=== PATIENT | male | born 1960 | race Caucasian/White ===

== ENCOUNTER → 2023-05-21 | Outpatient (CLI) | payer MEDICAID ==
[2023-05-21 15:03] LABS: INR 0.9 (<1.2); Partial Thromboplastin Time 26.4 sec (22.0-30.0); Prothrombin Time 10.3 sec (10.0-12.5)
[2023-05-21 19:58] LABS: HCT 49.5 % (39.6-50.0); HGB 16.8 g/dL (13.0-17.0); MCH 30.5 pg (27.0-32.0); MCHC 33.9 g/dL (32.0-37.0); Mean Platelet Volume 10.7 FL (9.5-12.2); NRBC Per 100 WBC 0 X 10*3/uL (0.00-0.01); Platelet Count 316 X 10*3/uL (140-440); RDW 12.8 % (11.5-14.5); WBC 8.96 X 10*3/uL (4.50-10.00)
[2023-05-22 01:57] LABS: Appearance,Urine Turbid (Clear); Bilirubin,Urine Negative (Negative); Blood,Urine Negative (Negative); Color,Urine Yellow (Yellow); Ketones,Urine Negative (Negative); Nitrite,Urine Negative (Negative); Specific Gravity,Urine 1.022 (1.001-1.030); Urobilinogen,Urine 0.2 E.U./DL
[2023-05-22 02:07] LABS: Bacteria,Urine None Seen (None Seen)
[2023-05-22 02:34] LABS: ALT 62 U/L (10-49); AST 46 U/L (14-35); Albumin 4.8 g/dL (3.8-4.9); Albumin/Globulin Ratio 1.66 Ratio (1.60-3.17); Alkaline Phosphatase 96 U/L (41-126); BUN/Creat Ratio 13.38 Ratio (12.00-20.00); Blood Urea Nitrogen 10.7 mg/dL (9.0-27.0); Calcium 10.6 mg/dL (8.7-10.3); Chloride 97 mmol/L (96-109); Globulin 2.9 g/dL (1.6-3.3); Glucose 155 mg/dL (70-110); Potassium 5.3 mmol/L (3.5-5.5); Sodium 138 mmol/L (135-145); Total Bilirubin 0.4 mg/dL (0.3-1.2); Total Protein 7.7 g/dL (6.2-8.2)
== END | disposition home or self-care (01) ==
LOC: LABPAT 12:35
PROVIDERS: ATTEND Orthopaedic Surgery
DX: Z01.812 Encounter for preprocedural laboratory examination (principal); I44.4 Left anterior fascicular block; M16.11 Unilateral primary osteoarthritis, right hip; E11.9 Type 2 diabetes mellitus without complications; R94.31 Abnormal electrocardiogram [ECG] [EKG]
CPT/HCPCS: 80053; 81001; 83036; 85027; 85610; 85730; 86850; 86900; 86901; 87070; 93005

== ENCOUNTER → 2023-07-01 | Outpatient (CLI) | payer MEDICAID ==
--- NOTE | 2023-07-01 12:52 | US ---
EXAMINATION TYPE: US liver DATE OF EXAM: 07/01/2023 COMPARISON: NONE CLINICAL INDICATION: Male, 62 years old with history of R74.8 ELEVATED LIVER ENZYMES; Elevated liver enzymes. TECHNIQUE: Multiple sonographic images of the right upper quadrant are obtained. FINDINGS: EXAM MEASUREMENTS: Liver Length: 19.0 cm Gallbladder Wall: 0.25 cm CBD: 0.48 cm Right Kidney: 13.5 x 6.3 x 5.1 cm MEDICAL RECEPTIONIST BILLER NOTES: Exam is limited due to gas and patient body habitus. Pancreas: Not well seen due to body habitus and bowel gas. Liver: Appears enlarged, heterogeneous, with increased attenuation and echogenicity. Limited. Gallbladder: Fold seen. Evidence for sonographic Ktichen's sign: No CBD: Portions seen appear wnl Right Kidney: No hydronephrosis. IVC was not well seen, limited. IMPRESSION: 1. Hepatomegaly at 19.0 cm with severe hepatic steatosis. Appropriate clinical management advised. 2. No gallstones or biliary ductal dilatation.
== END | disposition home or self-care (01) ==
LOC: RADUSWWP 06:48
PROVIDERS: ATTEND Family Medicine
DX: K76.0 Fatty (change of) liver, not elsewhere classified (principal); R16.0 Hepatomegaly, not elsewhere classified; R74.8 Abnormal levels of other serum enzymes
CPT/HCPCS: 76705

== ENCOUNTER → 2023-08-25 | Outpatient (CLI) | payer MEDICAID ==
[2023-08-25 09:30] LABS: INR 0.9 (<1.2); Partial Thromboplastin Time 26.2 sec (22.0-30.0); Prothrombin Time 10.4 sec (10.0-12.5)
[2023-08-25 11:01] LABS: HCT 46.2 % (39.6-50.0); HGB 15.6 g/dL (13.0-17.0); MCHC 33.8 g/dL (32.0-37.0); MCV 91.8 FL (80.0-97.0); Mean Platelet Volume 11.3 FL (9.5-12.2); NRBC Per 100 WBC 0 X 10*3/uL (0.00-0.01); Platelet Count 294 X 10*3/uL (140-440); RBC 5.03 X 10*6/uL (4.40-5.60); RDW 13.1 % (11.5-14.5); WBC 8.62 X 10*3/uL (4.50-10.00)
[2023-08-25 11:10] LABS: ALT 41 U/L (10-49); AST 26 U/L (14-35); Albumin 4.5 g/dL (3.8-4.9); Alkaline Phosphatase 87 U/L (41-126); BUN/Creat Ratio 16.78 Ratio (12.00-20.00); Blood Urea Nitrogen 15.1 mg/dL (9.0-27.0); Calcium 9.5 mg/dL (8.7-10.3); Carbon Dioxide 23.3 mmol/L (21.6-31.8); Chloride 100 mmol/L (96-109); Globulin 2.5 g/dL (1.6-3.3); Glucose 161 mg/dL (70-110); Potassium 4.6 mmol/L (3.5-5.5); Sodium 136 mmol/L (135-145); Total Bilirubin 0.3 mg/dL (0.3-1.2)
== END | disposition home or self-care (01) ==
LOC: LABPAT 08:20
PROVIDERS: ATTEND Orthopaedic Surgery
DX: Z01.812 Encounter for preprocedural laboratory examination (principal); Z22.322 Carrier or suspected carrier of Methicillin resistant Staphylococcus aureus; M16.11 Unilateral primary osteoarthritis, right hip; E11.9 Type 2 diabetes mellitus without complications
CPT/HCPCS: 80053; 83036; 85027; 85610; 85730; 86618; 86850; 86900; 86901; 87070

== ENCOUNTER 2023-09-03 10:12 | Day surgery (SDC) | payer MEDICAID ==
[~2023-09-03 10:12] MED LIST: DEXAMETHASONE SOD PHOSPHATE 10 MG/ML 1 ML VIAL IV PRN; HYDROmorphone 0.5 MG/0.5 ML SYRINGE IVP PRN; LIDOCAINE 1% (10MG/ML) FOR IV START INTRADERMA PRN; ONDANSETRON 4 MG/2 ML VIAL IVP PRN; TRANEXAMIC 1,000 MG/100ML-NACL 1,000 MG in SALINE 1 100ML.BAG IV PRN; TRANEXAMIC 1,000 MG/100ML-NACL 1,000 MG in SALINE 1 100ML.BAG IVPB PRN
[2023-09-03] MEDS: LACTATED RINGERS 1,000 ML IV SCH (11:08)
[2023-09-03 11:47] LABS: Glucose,Whole Blood 110 mg/dL (70-110)
[2023-09-03] MEDS: ACETAMINOPHEN TAB 500 MG TAB PO PRN (11:55)
[2023-09-03] MEDS: oxyCODONE ER 10 MG TAB.ER.12H PO PRN (11:55)
[2023-09-03] MEDS: DOCUSATE 100 MG CAP PO PRN (11:55)
[2023-09-03] MEDS: MIDAZOLAM 2 MG/2 ML VIAL IV PRN (12:01)
[2023-09-03] MEDS: KETOROLAC 15 MG/ML 1 ML VIAL IVP PRN (12:11)
[2023-09-03] MEDS: ONDANSETRON 4 MG/2 ML VIAL IVP ONE (12:11)
[2023-09-03] MEDS: DEXAMETHASONE SOD PHOSPHATE 4 MG/ML 1 ML VIAL IV ONE (12:11)
[2023-09-03] MEDS: FAMOTIDINE 20 MG/2 ML VIAL IVP PRN (12:11)
[2023-09-03] MEDS ORDERED: TRANEXAMIC 1,000 MG/100ML-NACL PREMIX BAG ONE (12:24)
[2023-09-03] MEDS ORDERED: fentaNYL (PF) 50 MCG/ML 2 ML AMP ONE (12:24)
[2023-09-03] MEDS ORDERED: NEOSTIGMINE 1 MG/ML 10 ML VIAL ONE (12:24)
[2023-09-03] MEDS ORDERED: SUCCINYLCHOLINE CHLORIDE 200 MG/10 ML VIAL IV ONE (12:24)
[2023-09-03] MEDS ORDERED: DEXAMETHASONE SOD PHOSPHATE 10 MG/ML 1 ML VIAL ONE (12:24)
[2023-09-03] MEDS ORDERED: GLYCOPYRROLATE 0.2 MG/ML 2 ML VIAL ONE (12:24)
[2023-09-03] MEDS ORDERED: PROPOFOL 10 MG/ML 20 ML VIAL IV ONE (12:24)
[2023-09-03] MEDS ORDERED: ROCURONIUM 10 MG/ML (5 ML VIAL) IV ONE (12:24)
[2023-09-03] MEDS ORDERED: MIDAZOLAM 2 MG/2 ML VIAL ONE (12:24)
[2023-09-03] MEDS ORDERED: ROPIVACAINE 5 MG/ML 30 ML VIAL ONE (12:24)
[2023-09-03] MEDS ORDERED: PHENYLEPHRINE 10 MG/ML VIAL ONE (12:24)
--- NOTE | 2023-09-03 12:29 | P.ANPRN ---
Procedure Note - Anesthesia - Nerve Block Performed Right Moy Single Time Out Performed: Yes Date of Procedure: 09/03/23 Procedure Start Time: 12:00 Procedure Stop Time: 12:08 Location of Patient: PreOp Indication: Acute Post-Operative Pain, Analgesia, Requested by Surgeon Sedation Type: Sedate with meaningful contact maintained Preparation: Sterile Prep Position: Supine Catheter: None Needle Types: Pajunk Needle Gauge: 21 Ultrasound used to visualize needle placement: Yes Ultrasound used to observe medication spread: Yes Injectate: 0.5% Ropivacaine (see comment for volume) (Ropiv 30ml + decadron 4mg) Blood Aspirated: No Pain Paresthesia on Injection Noted: No Resistance on Injection: Normal Image Stored and Saved: Yes Events: Uneventful and Well Tolerated
[2023-09-03] MEDS: ceFAZolin 3 GM in SODIUM CHLORIDE 0.9% 100 ML IVPB PRN (12:30)
[2023-09-03] MEDS: ROPIVACAINE/EPI/CLONIDINE/KET 50 ML SYRINGE MISCELLANE PRN (13:13)
[2023-09-03] MEDS: VANCOMYCIN 1,000 MG VIAL MISCELLANE ONE (14:19)
--- NOTE | 2023-09-03 14:36 | P.OP ---
Date of Procedure: 09/03/23 Preoperative Diagnosis: 1. Severe right hip osteoarthritis 2. BMI 44 3. Type 2 diabetes Postoperative Diagnosis: Same Procedure(s) Performed: Right direct anterior total hip arthroplasty Implants: 1. [place] Trident II Acetabular Cup, Size #56 2. [place] Insignia Size #6 Femoral Stem, High Offset 3. Biolox delta femoral head, 36 mm, +0 neck Anesthesia: JACQUIA, regional Surgeon: El Byers Sinker Winder #1: Gianna Rodriguez Estimated Blood Loss (ml): 200 IV fluids (ml): 1,200 Pathology: none sent Condition: stable Disposition: PACU Indications for Procedure: The patient presented to my office with severe and incapacitating right hip pain secondary to advanced arthritis. He had failed nonsurgical treatment and requested proceeding with a total hip replacement. As part of my preoperative work up his hemoglobin A1c was about 8 which I recommended reducing prior to elective hip replacement. He was able to do this. He understands that he is at an elevated risk of having a complication given his weight but did well after both of his knee replacements. He requested proceeding with a total hip replacement. I had a long discussion with the patient in the office on the potential risks and complications of an elective total hip replacement through a direct anterior approach. Risks discussed include, but are certainly not limited to, risks from anesthesia, superficial infection requiring local wound care or antibiotics, deep maddi-prosthetic joint infection and the treatment required to eradicate infection, intraoperative fracture, postoperative periprosthetic fracture, damage to local blood vessels or nerves particularly the lateral femoral cutaneous nerve, delayed wound healing requiring local wound care or possibly surgical debridement, hip dislocation, leg length discrepancy, soft tissue irritation around the total hip implant such as iliopsoas tendinitis or trochanteric bursitis, wear and osteolysis from the implants, squeaking or audible noises, groin pain, thigh pain, heterotopic ossification, stiffness, aseptic loosening of the implants, dissatisfaction with surgical outcome, need for revision surgery, DVT, PE, swelling of the operative extremity, acute cor onary event, stroke, failure to thrive, and possibly loss of life or limb. The patient understands that while these are the most common complications after an elective hip replacement there are certainly other less common complications possible. They were given ample time to ask questions regarding the potential complications of a hip replacement. Following our discussion the patient provided their verbal and written consent to go forward with an elective total hip replacement. Operative Findings: Severe right hip osteoarthritis and large clear hip effusion Description of Procedure: The patient was identified in the preoperative holding area and the correct hip was marked with my initials. I reviewed the procedure and consent with the patient. All of their questions were answered. The patient was then brought back into the operating room by anesthesia. While on the [facility] anesthesia was administered by the anesthesia team. Preoperative antibiotics and tranexamic acid were also given. After the patient was under anesthesia I examined their ankles to determine their preoperative leg length discrepancy. The skin over the anterior aspect of the hip was shaved to remove hair over the site of planned incision. Both feet and ankles were padded with webril and boots for the [place] were applied. The patient was then carefully transferred onto the [place] table. A perineal post was immediately placed. The arms were placed on arm holders and were well-padded. Both boots were secured to the spars on the [place] table. The patient was positioned so that the pelvis was centered over the post. Nonsterile drapes were applied. A timeout was performed identifying the correct patient, operative extremity, and procedure. At this point fluoroscopy was brought in to take preoperative images of the pelvis and operative hip. Using the standing AP pelvis from the office as a template, a comparable image was obtained with fluoroscopy. A metallic bar was used to create a bi-ischial line for use as a reference to leg length adjustments during the procedure. Global offset was also measured on both the operative and nonoperative leg. Fluoroscopy was then brought out and a pre-scrub using a chlorhexidine scrub brush was performed. The operative limb was then prepped and draped in the standard sterile fashion. An anterior longitudinal incision was made lateral and distal to the ASIS. The skin and subcutaneous tissues were incised sharply. The underlying tensor fascia was identified and incised in its midportion. The fascia was dissected free from the underlying muscle and the muscle belly was retracted. A blunt tipped cobra retractor was placed over the superior neck under the muscle fibers of the gluteus minimus. The deep enveloping fascia of the tensor was incised. The anterior leash of vessels were then identified and cauterized. The fascia between the rectus and the capsule was then incised and the pre-capsular fat was excised. A second Cobra was placed inferior to the neck. The interval between the rectus and iliocapsularis and the hip capsule was developed and a retractor was placed carefully over the anterior rim of the acetabulum. A T-shaped anterior capsulotomy was performed. The superior capsular leaflet was left in place in the inferior capsular flap was excised. The Cobra retractors were placed intracapsularly. We then made a femoral neck osteotomy according to preoperative and intraoperative templating and confirmed the level of the osteotomy using fluoroscopic imaging. The femoral head was removed, passed off to the back table, and sized. The superior capsular flap was excised. Retractors were placed circumferentially exposing the acetabulum. We then circumferentially debrided the acetabulum free of labrum and osteophytes. The pulvinar was removed to fully visualize the cotyloid fossa. We then sequentially reamed to achieve peripheral fit and excellent bleeding subchondral bone. The socket was thoroughly irrigated. The acetabular component was impacted into the appropriate position using fluoroscopy to guide version, inclination, and depth of insertion taking care to have a comparable image of the AP pelvis to the standing image taken in the office. An excellent press-fit was achieved and final position was confirmed using fluoroscopy. The press fit was augmented with bony cancellus dome screws. The liner was then impacted into the socket. Attention was then turned to the femur. The remnant dorsal lateral capsule was excised. The short external rotators were visible and protected. A bone hook was used to confirm appropriate translation of the trochanter away from the acetabulum. The leg was then extended and adducted and the bone hook was used to elevate the femur for broaching. A box osteotome and blunt tipped canal sound was then utilized to gain access to the femoral canal. We then sequentially broached the femur in appropriate anteversion until excellent torsional stability was achieved. The neck cut was brought flush to the trial broach with a calcar planar. A trial neck and head were then placed onto the broach and the hip was atraumatically reduced under direct visualization. External rotation to 90 was performed to assess stability. Fluoroscopy was brought in. An AP and lateral fluoroscopic image of the proximal femur was obtained to assess position and fill of the trial broach. An AP of the pelvis was then obtained and matched to the preoperative image taken. A bi-ischial bar was then placed and measurements were taken to assess changes in length and offset. The hip was then carefully dislocated, the proximal femur was exposed, and the trial implants were removed. The wound and proximal femur was thoroughly irrigated using sterile saline and pulsatile lavage. The final femoral implant was dispensed and gently tapped into place generating an excellent press-fit. The trunnion was cleansed and the final head was tapped into place to engage the [place] taper. The acetabulum was irrigated and visualized to be free of debris. The hip was carefully reduced. Stability was checked clinically with external rotation to 90 and there was no evidence of instability. Final fluoroscopic images were taken. The wound was then thoroughly irrigated and soaked with a dilute Betadine rinse for 3 minutes. 3 L of sterile saline was irrigated through the wound using pulsatile lavage. Local anesthetic cocktail was injected into the soft tissues around the surgical field. The wound was then closed in layers. A sterile dressing was placed over the surgical incision. The drapes were taken down and the patient was carefully transferred off of the [place] table. Following removal of the boots the leg lengths felt acceptable. The patient was then taken to recovery room having tolerated the procedure well. Gianna PETERSON was required as a skilled speech language pathology assistant due to the complexity of surgery for patient positioning, draping, exposure, retraction, closure of wound, and application of dressing. PLAN: The patient can weight-bear as tolerated on the operative extremity. DVT prophylaxis with aspirin 81 mg twice a day based on preoperative risk stratification. Physical therapy for gait training. Leave surgical dressing in place. Internal medicine for perioperative medical management.
[2023-09-03] MEDS ORDERED: HYDROmorphone 0.5 MG/0.5 ML SYRINGE IVP PRN ×2 (14:53)
[2023-09-03] MEDS ORDERED: NALOXONE 0.4 MG/ML 1 ML VIAL IV PRN (14:53)
[2023-09-03] MEDS ORDERED: ONDANSETRON 4 MG/2 ML VIAL IVP PRN (14:53)
[2023-09-03] MEDS ORDERED: MAGNESIUM HYDROXIDE 2,400 MG/30 ML CUP PO PRN (14:53)
[2023-09-03] MEDS ORDERED: HYDROcodone/APAP 7.5-325MG 1 EACH TAB PO PRN (14:56)
[2023-09-03 15:03] LABS: Glucose,Whole Blood 159 mg/dL (70-110)
[2023-09-03] MEDS: HYDROmorphone 0.5 MG/0.5 ML SYRINGE IVP ONE ×2 (15:04→15:39)
[2023-09-03] MEDS: LACTATED RINGERS 1,000 ML IV ONE (15:41)
--- NOTE | 2023-09-03 15:54 | FL ---
EXAMINATION TYPE: FL guidance operating room, XR Hip Limited RT DATE OF EXAM: 09/03/2023 Comparison: None Clinical History: 63-year-old male RT ANTERIOR HIP Findings: RT ANTERIOR HIP REPLACEMENT. 40 SEC FL TIME & 4.[address] PERES. 8 images submitted. Impression: Intraoperative fluoroscopy as above.
[2023-09-03] MEDS: SODIUM CHLORIDE 0.9% 1,000 ML IV SCH (16:22)
[2023-09-03 16:53] LABS: Glucose,Whole Blood 156 mg/dL (70-110)
[2023-09-03] MEDS: HYDROmorphone 1 MG/ML 1 ML SYRINGE IVP PRN (17:44)
[2023-09-03 20:36] LABS: Glucose,Whole Blood 206 mg/dL (70-110)
[2023-09-03] MEDS: SENNOSIDES-DOCUSATE SODIUM 1 EACH TAB PO SCH (21:03)
[2023-09-03] MEDS: ASPIRIN 81 MG PO SCH (21:03)
[2023-09-03] MEDS: lisinopriL 20 MG TAB PO SCH (21:03)
[2023-09-03] MEDS: ceFAZolin 3 GM in SODIUM CHLORIDE 0.9% 100 ML IVPB SCH (21:04)
[2023-09-03] MEDS: HYDROcodone/APAP 7.5-325MG 1 EACH TAB PO PRN (21:04)
[2023-09-03 21:18] VITALS: RESP 18
[2023-09-04 05:49] LABS: Glucose,Whole Blood 168 mg/dL (70-110)
[2023-09-04] MEDS ORDERED: HYDROcodone/APAP 10-325MG 1 EACH TAB PO PRN (07:38)
--- NOTE | 2023-09-04 07:44 | P.PN ---
Subjective Progress Note Date: 09/04/23 Is having pain in his right hip is otherwise doing well. He has not been out of bed yet. Objective - Vital Signs Vital signs: Vital Signs Temp 98.2 F 09/04/23 02:10 Pulse 76 09/04/23 02:10 Resp 18 09/04/23 02:10 BP 100/64 09/04/23 02:10 Pulse Ox 93 L 09/04/23 02:10 FiO2 Intake & Output 09/03/23 09/04/23 09/04/23 18:59 06:59 18:59 Intake Total 1150 500 Output Total 200 625 Balance 950 -125 Weight 156.9 kg Intake: IV 1150 Oral 500 Output: Urine 625 Estimated Blood Loss 200 - Exam Resting comfortably in bed. Alert and able to answer questions. Dressing over the anterior aspect of the right hip is intact with no drainage or strike through. Mild swelling. Femoral nerve function is intact. Able to actively plantar flex and dorsiflex his ankle and his toes. - Labs Labs: Abnormal Lab Results - Last 24 Hours (Table) 09/03/23 09/03/23 09/03/23 Range/Units 15:02 16:52 20:32 POC Glucose (mg/dL) 159 H 156 H 206 H (70-110) mg/dL 09/04/23 Range/Units 05:38 POC Glucose (mg/dL) 168 H (70-110) mg/dL Assessment and Plan Assessment: Postoperative day #1 status post right direct anterior total hip arthroplasty BMI 44 Type 2 diabetes with preoperative hemoglobin A1c 7.0 Plan: 1. Weight bear as tolerated on the operative extremity, up with assistance and a walker 2. DVT prophylaxis with aspirin 81 mg BID 3. 2 doses of post operative antibiotics 4. Leave surgical dressing in place 5. Internal medicine for maddi-operative medical management 6. Physical therapy for gait training and mobilization 7. Dispo: And like to see the patient does with physical therapy and is getting control. If he passes therapy and is comfortable he can discharge home later today, but if he needs another night we'll plan on keeping him until tomorrow.
[2023-09-04 07:53] VITALS: BP 111/72; PULSE 72; TEMP 98.1
[2023-09-04] MEDS: HYDROcodone/APAP 10-325MG 1 EACH TAB PO PRN (09:12)
[2023-09-04 10:46] LABS: Basophils # (A) 0.03 X 10*3/uL (0.00-0.10); Basophils % (A) 0.2 %; Eosinophils # (A) 0.01 X 10*3/uL (0.04-0.35); Eosinophils % (A) 0.1 %; HCT 39.3 % (39.6-50.0); HGB 13.3 g/dL (13.0-17.0); Lymphocytes # (A) 2.07 X 10*3/uL (0.90-5.00); Lymphocytes % (A) 10.8 %; MCH 31.5 pg (27.0-32.0); MCHC 33.8 g/dL (32.0-37.0); MCV 93.1 FL (80.0-97.0); Mean Platelet Volume 10.5 FL (9.5-12.2); Monocytes # (A) 1.46 X 10*3/uL (0.20-1.00); Monocytes % (A) 7.6 %; NRBC Per 100 WBC 0 X 10*3/uL (0.00-0.01); Neutrophils # (A) 15.52 X 10*3/uL (1.80-7.70); Neutrophils % (A) 80.5 %; Platelet Count 294 X 10*3/uL (140-440); RBC 4.22 X 10*6/uL (4.40-5.60); RDW 13.3 % (11.5-14.5); WBC 19.24 X 10*3/uL (4.50-10.00)
[2023-09-04 11:32] LABS: Glucose,Whole Blood 152 mg/dL (70-110)
--- NOTE | 2023-09-04 11:56 | P.DS ---
Providers Date of admission: Friday09/03/2023 Attending physician: El Byers Consults: 09/03/23 14:53 Consult Physician Routine Consulting Provider: Jhony Dougherty Consult Reason/Comments: medical management Do you want consulting provider notified?: Yes Primary care physician: Jhony Dougherty Hospital Course: Patient is very pleasant 63-year-old male was admitted under my care and 1 underwent a total hip replacement yesterday. He is admitted to the orthopedic floor. He did well. He was transitioned from IV to oral pain medications. He received 2 doses postoperative antibiotics. He worked with physical therapy and did well. He is cleared for discharge. Plan - Discharge Summary Discharge Rx Participant: No New Discharge Prescriptions: New Omeprazole [PriLOSEC] 20 mg PO DAILY #30 cap Doxycycline [Vibramycin] 100 mg PO BID 14 Days #28 capsule oxyCODONE HCL/ACETAMINOPHEN [Percocet 7.5-325 mg] 1 tab PO Q4HR PRN 7 Days #32 tab PRN Reason: Pain Aspirin [Adult Low Dose Aspirin EC] 81 mg PO BID 30 Days #60 tab Sennosides [Senokot] 2 tab PO DAILY PRN #60 tablet PRN Reason: Constipation Diclofenac Sodium [Voltaren] 75 mg PO BID #60 tab No Action Rosuvastatin Calcium [Crestor] 40 mg PO HS HYDROcodone/APAP 10-325MG [[place] 10-325] 1 tab PO Q8H PRN PRN Reason: Pain lisinopriL [Zestril] 40 mg PO HS Semaglutide [Ozempic] 0.5 mg SQ SA Mupirocin 2% Oint [Bactroban 2% Oint] 1 applic NASAL BID Discharge Medication List HYDROcodone/APAP 10-325MG [[place] 10-325] 1 tab PO Q8H PRN 09/01/23 [History] Mupirocin 2% Oint [Bactroban 2% Oint] 1 applic NASAL BID 09/01/23 [History] Rosuvastatin Calcium [Crestor] 40 mg PO HS 09/01/23 [History] Semaglutide [Ozempic] 0.5 mg SQ SA 09/01/23 [History] lisinopriL [Zestril] 40 mg PO HS 09/01/23 [History] Aspirin [Adult Low Dose Aspirin EC] 81 mg PO BID 30 Days #60 tab 09/03/23 [Rx] Diclofenac Sodium [Voltaren] 75 mg PO BID #60 tab 09/03/23 [Rx] Doxycycline [Vibramycin] 100 mg PO BID 14 Days #28 capsule 09/03/23 [Rx] Omeprazole [PriLOSEC] 20 mg PO DAILY #30 cap 09/03/23 [Rx] Sennosides [Senokot] 2 tab PO DAILY PRN #60 tablet 09/03/23 [Rx] oxyCODONE HCL/ACETAMINOPHEN [Percocet 7.5-325 mg] 1 tab PO Q4HR PRN 7 Days #32 tab 09/04/23 [Rx] Follow up Appointment(s)/Referral(s): El Byers MD [Medical Doctor] - 2 Weeks Activity/Diet/Wound Care/Special Instructions: 1. Weight-bear as tolerated on your operative extremity unless instructed otherwise. Use a walker or other assistive device to ambulate. 2. Leave surgical dressing in place. If your dressing becomes saturated with blood, there is drainage, or the dressing becomes loose please contact the office. 3. It is okay to shower with your surgical dressing, but do not submerge in water (no hot tubs, bath's, swimming etc.) 4. Make sure to take her blood clot prevention medication as prescribed (aspirin, Eliquis, Xarelto, and Plavix are commonly prescribed medications for blood clot prevention) 5. While taking [place] or Percocet for pain make sure you're taking a stool softener (Colace) and drink lots of water. 6. Keep all follow-up appointments as scheduled. You will usually be seen in 1-2 weeks following surgery. 7. Please contact the office with any questions or concerns [phone] 8. Schedule an appointment for outpatient physical therapy once home from the hospital. Discharge Disposition: HOME WITH HOME HEALTH SERVICES
--- NOTE | 2023-09-06 02:54 | PN ---
PROGRESS NOTE DATE OF SERVICE: 09/04/2023 CHIEF COMPLAINT: Status post right YEHUDA. HISTORY OF PRESENT ILLNESS: This gentleman is doing well. He has had no fever, chills, chest pain, shortness of breath, etc. He is doing very well up and about and he is eating and voiding. He expects to go home today. PHYSICAL EXAMINATION: GENERAL: Color is good. VITAL SIGNS: Normal. CHEST: Clear. CARDIAC: Normal. ABDOMEN: Protuberant, soft and nontender. IMPRESSION: 1. Status post right total abdominal hysterectomy. 2. Obesity. 3. Diabetes. PLAN: Probably home today. MMODL / IJN: [id number] /
[2023-09-06] MEDS ORDERED: NON FORMULARY DRUG (Semaglutide [Ozempic] 0.25 MG/0.368 ML Pen.Injctr) SQ SCH (09:00)
--- NOTE | 2023-09-08 07:40 | CONS ---
CONSULTATION CHIEF COMPLAINT: Right hip pain. HISTORY OF PRESENT ILLNESS: This gentleman is coming in for an elective right hip replacement. He has been in good health. He is overweight. REVIEW OF SYSTEMS: He has had no neurologic problems, difficulty with vision or hearing, chest pain, shortness of breath, heart disease, orthopnea, PND, abdominal pain, nausea, vomiting, melena, hematochezia, jaundice, renal failure, frequency, urgency, nocturia, incontinence, diabetes, etc. Past medical history, family history, personal and social histories reveal that he is allergic to penicillin. MEDICATIONS: He is on, 1. Ozempic. 2. Crestor. 3. Vicodin. 4. Lisinopril. He is a type 2 diabetic. PAST SURGICAL HISTORY: Surgically, he had T and A. SOCIAL HISTORY: He does not smoke. PHYSICAL EXAMINATION: VITAL SIGNS: Blood pressure is 130/80, pulse 71 and regular, respirations 16, and he is afebrile. BMI is 44.9. GENERAL: Appeared to be overweight, in no acute distress. SKIN: Color is normal. Skin is warm and dry. LYMPHATICS: Lymph nodes are not enlarged. HEENT: Head, ears, eyes, nose, mouth, and throat are normal. NECK: Veins not distended. Thyroid not enlarged. CHEST: Clear. CARDIAC: Normal sinus rhythm and no murmurs or extra sounds. ABDOMEN: Protuberant, soft and nontender. EXTREMITIES: Normal. NEUROLOGICAL: Intact. DIAGNOSES: He is admitted to the hospital with diagnoses: 1. Osteoarthritis of the right hip. 2. Type 2 diabetes. 3. Obesity. RECOMMENDATIONS: None. MMODL / IJN: [id number] /
== END 2023-09-04 17:11 | disposition home health service (06) ==
LOC: OR 10:12 → 4SSUR 14:48 → OR 09-04 17:11
PROVIDERS: ATTEND Orthopaedic Surgery
DX: M16.11 Unilateral primary osteoarthritis, right hip (principal); E11.9 Type 2 diabetes mellitus without complications; E66.9 Obesity, unspecified; Z79.82 Long term (current) use of aspirin; Z79.84 Long term (current) use of oral hypoglycemic drugs; Z79.899 Other long term (current) drug therapy; Z68.41 Body mass index [BMI] 40.0-44.9, adult
CPT/HCPCS: 94760; 97161; 97535; 97166; 64447; 85025; 73501; 27130; C1776; J2250; J3370; J1100; J0690 ×2; J2405; J3490; J1170 ×3; J1885